=== PATIENT | male | born 1945 | race Caucasian/White ===

== ENCOUNTER 2017-07-18 04:26 | Inpatient (IN) ==
[2017-07-18] MEDS ORDERED: ONDANSETRON 4 MG/2 ML VIAL ONE (04:40)
[2017-07-18] MEDS ORDERED: TICAGRELOR 90 MG TABLET ONE (04:40)
[2017-07-18] MEDS ORDERED: MORPHINE 2 MG/1 ML SYRINGE ONE (04:40)
[2017-07-18] MEDS ORDERED: NITROGLYCERIN 2% OINT 1 INCH/GM PACK TOP ONE (04:41)
[2017-07-18] MEDS ORDERED: MIDAZOLAM 10 MG/2 ML VIAL ONE (04:48)
[2017-07-18] MEDS ORDERED: VECURONIUM 10 MG VIAL IV ONE (04:50)
[2017-07-18] MEDS ORDERED: HEPARIN/NACL 0.9% 2 UNITS/ML 0 ML IV ONE (05:16)
[2017-07-18] MEDS ORDERED: LIDOCAINE 1% 20 ML VIAL ONE (05:16)
[2017-07-18 05:17] LABS: Basophils # 0.1 10*3/uL (0.0-0.2); Basophils % 0.4 % (0.0-0.8); Eosinophils # 0.1 10*3/uL (0.0-0.87); Eosinophils % 0.4 % (0.00-10.9); Hemoglobin 10.9 GM/DL (14.0-18.0); Immature Granulocytes % 0.4 %; Immature Granulocytes Absolute 0.05 #; Lymphocytes # 1.6 10*3/uL (1.4-4.0); Lymphocytes % 13.2 % (21.2-54.2); Mean Corpuscular HGB Conc 34.1 GM/DL (32-36); Mean Corpuscular Hemoglobin 31 PG (27-34); Mean Platelet Volume 9.9 FL (9.6-12.0); Monocytes # 1.2 10*3/uL (0.11-0.8); Monocytes % 9.7 % (1.7-12.7); Neutrophils # 9.1 10*3/uL (1.4-7.4); Neutrophils % 75.9 % (38.7-73.9); Platelet Count 229 T/CUMM (130-400); Red Blood Count 3.48 MC/CUMM (3.8-5.5); Red Cell Distribution Width 15.4 % (9.3-17.3)
[2017-07-18 05:20] LABS: INR 1.1; PT Patient Result 11.3 SECS; Partial Thromboplastin Time 38.4 SECS (0-40)
[2017-07-18] MEDS ORDERED: HEPARIN 5,000 UNIT/1 ML VIAL ONE (05:23)
[2017-07-18 05:29] LABS: Albumin 2.8 G/DL (3.4-5.0); Bilirubin,Total 1.5 MG/DL (0.2-1.0); Calcium 8.3 MG/DL (8.5-10.1); Total Protein 6.4 G/DL (6.4-8.3)
[2017-07-18] MEDS ORDERED: DOPamine 800 MG/250 ML PREMIX IV ONE (05:33)
[2017-07-18] MEDS ORDERED: TIROFIBAN 5,000 MCG/100 ML PREMIX IV ONE (05:33)
[2017-07-18] MEDS ORDERED: ONDANSETRON 4 MG/2 ML VIAL IV PRN (06:23)
[2017-07-18] MEDS ORDERED: ZALEPLON 5 MG CAPSULE PO PRN (06:23)
[2017-07-18] MEDS ORDERED: SODIUM CHLORIDE 0.45% 1,000 ML IV SCH (06:30)
[2017-07-18] MEDS: SODIUM CHLORIDE 0.9% 1,000 ML IV SCH ×3 (06:55→20:25)
[2017-07-18] MEDS ORDERED: ATORVASTATIN 40 MG TABLET PO STA (06:56)
[2017-07-18 07:56] LABS: CKMB % 3.5 %
[2017-07-18 07:57] LABS: Troponin I Only 3.67 NG/ML (0.00-0.045)
[2017-07-18 08:11] LABS: Apearance,Urine CLOUDY (Clear); Bilirubin,Urine Negative (Negative); Blood, Urine Negative (Negative); Glucose,Urine (UA) 50 mg/dL (Negative); Ketones,Urine Negative (Negative); Mucus,Urine Occasional /LPF (Occasional); Nitrite,Urine Negative (Negative); Protein,Urine >=500 MG/DL; RBC,Urine 26 /HPF (0-4); Sperm,Urine Occasional /HPF (Negative); Squamous Epithelial Cell,Urine Occasional /HPF (0-10); Urine Specific Gravity 1.045 (1.001-1.035); WBC,Urine 5 /HPF (0-6)
[2017-07-18 08:12] LABS: Urine Color Dark yellow (Yellow)
[2017-07-18 08:54] LABS: ABG Base Excess -5.4 MMOL/L (-2.5-2.5); ABG Oxygen Saturation 98.8 % (95-100); ABG PCO2 64.8 MM HG (35-48); ABG TCO2 22.5 MMOL/L (23-27); Allen Test Positive; Pt O2 Delivery Device Ventilator
[2017-07-18 10:44] LABS: CKMB % 7.3 %
[2017-07-18 10:47] LABS: Troponin I Only 10.3 NG/ML (0.00-0.045)
[2017-07-18] MEDS ORDERED: MIDAZOLAM 100 MG in SODIUM CHLORIDE 0.9% 80 ML IV PRN (10:55)
[2017-07-18] MEDS ORDERED: PROPOFOL 1,000 MG/100 ML BOTTLE IV ONE (10:58)
[2017-07-18] MEDS: ATORVASTATIN 80 MG TABLET PO SCH (11:49)
[2017-07-18] MEDS: METOPROLOL TARTRATE 25 MG TABLET PO SCH ×2 (11:50→22:21)
[2017-07-18] MEDS: SERTRALINE 50 MG TABLET PO SCH (11:50)
[2017-07-18] MEDS: PANTOPRAZOLE 40 MG TABLET PO SCH (11:50)
[2017-07-18] MEDS: traZODone 50 MG TABLET PO SCH ×3 (11:50→22:08)
[2017-07-18] MEDS: ASPIRIN EC 81 MG TABLET PO SCH (11:50)
[2017-07-18] MEDS: TICAGRELOR 90 MG TABLET PO SCH ×2 (11:50→22:07)
[2017-07-18] MEDS: methylPREDNISolone SOD SUC 40 MG/1 ML VIAL IV SCH ×2 (11:51→17:47)
[2017-07-18] MEDS: PROPOFOL 1,000 MG/100 ML BOTTLE IV SCH (12:20)
[2017-07-18 13:54] LABS: CKMB % 8.1 %
[2017-07-18 14:13] LABS: Troponin I Only 11.9 NG/ML (0.00-0.045)
[2017-07-18] MEDS: ALBUTEROL/IPRATROPIUM 3 ML NEB RESP TX SCH ×2 (15:37→17:57)
[2017-07-18] MEDS: HYDROmorphone 2 MG/1 ML VIAL IV PRN ×2 (16:45→20:25)
[2017-07-18] MEDS ORDERED: TICAGRELOR 90 MG TABLET PO ONE ×2 (20:56→21:00)
[2017-07-18] MEDS ORDERED: HALOPERIDOL 5 MG/ML AMP IV PRN (21:28)
[2017-07-18] MEDS ORDERED: SODIUM CHLORIDE 0.9% 500 ML IV ONE (21:30)
[2017-07-18] MEDS ORDERED: diphenhydrAMINE 50 MG/1 ML VIAL IV ONE (21:30)
[2017-07-19] MEDS: SODIUM CHLORIDE 0.9% 1,000 ML IV SCH ×6 (00:45→23:30)
[2017-07-19] MEDS: ALBUTEROL/IPRATROPIUM 3 ML NEB RESP TX SCH ×4 (01:50→19:49)
[2017-07-19] MEDS: methylPREDNISolone SOD SUC 40 MG/1 ML VIAL IV SCH ×3 (03:17→17:12)
[2017-07-19 03:36] LABS: Allen Test Positive; Pt O2 Delivery Device Ventilator
[2017-07-19 03:37] LABS: ABG Base Excess -4.5 MMOL/L (-2.5-2.5); ABG HCO3 20.3 MMOL/L (20-26); ABG Oxygen Saturation 98.7 % (95-100); ABG PCO2 36.5 MM HG (35-48); ABG PH 7.364 (7.35-7.45); ABG PO2 155.7 MM HG (80-95); ABG TCO2 21.5 MMOL/L (23-27)
[2017-07-19 04:36] LABS: Basophils % 0.1 % (0.0-0.8); Hematocrit 32.8 VOL% (42.0-52.0); Hemoglobin 10.3 GM/DL (14.0-18.0); Immature Granulocytes % 0.4 %; Immature Granulocytes Absolute 0.04 #; Lymphocytes # 0.8 10*3/uL (1.4-4.0); Lymphocytes % 8.3 % (21.2-54.2); Mean Corpuscular HGB Conc 31.4 GM/DL (32-36); Mean Corpuscular Hemoglobin 30 PG (27-34); Mean Corpuscular Volume 96.5 FL (87-102); Mean Platelet Volume 10.1 FL (9.6-12.0); Monocytes # 0.6 10*3/uL (0.11-0.8); Monocytes % 6.1 % (1.7-12.7); Neutrophils # 8.5 10*3/uL (1.4-7.4); Neutrophils % 85.1 % (38.7-73.9); Platelet Count 208 T/CUMM (130-400); Red Cell Distribution Width 15.9 % (9.3-17.3)
[2017-07-19] MEDS: HYDROmorphone 2 MG/1 ML VIAL IV PRN (05:10)
[2017-07-19 06:26] LABS: Band Neutrophils 2 % (0-10); Burr Cells Slight; Giant Platelets Few; Hypochromasia 1+; Lymphocytes 5 % (20-55); Ovalocytes Slight; Platelet Estimate Adequate; Segmented Neutrophils 91 % (50-85); Total Cells Counted 100
[2017-07-19] MEDS: PROPOFOL 1,000 MG/100 ML BOTTLE IV SCH ×3 (08:51→18:11)
[2017-07-19] MEDS: ATORVASTATIN 80 MG TABLET PO SCH (10:37)
[2017-07-19] MEDS: CLINDAMYCIN INJ 600 MG in PREMIX 1 EACH IV SCH ×2 (10:37→17:12)
[2017-07-19] MEDS: PANTOPRAZOLE 40 MG TABLET PO SCH (10:37)
[2017-07-19] MEDS: TICAGRELOR 90 MG TABLET PO SCH ×2 (10:37→20:34)
[2017-07-19] MEDS: ASPIRIN EC 81 MG TABLET PO SCH (10:37)
[2017-07-19] MEDS: traZODone 50 MG TABLET PO SCH ×3 (10:37→20:34)
[2017-07-19] MEDS: SERTRALINE 50 MG TABLET PO SCH (10:38)
[2017-07-19] MEDS: METOPROLOL TARTRATE 25 MG TABLET PO SCH ×2 (10:38→20:34)
[2017-07-19] MEDS ORDERED: ENOXAPARIN 40 MG/0.4 ML SYRINGE SUBCUT SCH (21:00)
[2017-07-20] MEDS: CLINDAMYCIN INJ 600 MG in PREMIX 1 EACH IV SCH ×3 (00:18→15:36)
[2017-07-20] MEDS: HYDROmorphone 2 MG/1 ML VIAL IV PRN (00:18)
[2017-07-20] MEDS: ALBUTEROL/IPRATROPIUM 3 ML NEB RESP TX SCH ×4 (00:35→19:30)
[2017-07-20 03:08] LABS: ABG Base Excess -3.3 MMOL/L (-2.5-2.5); ABG HCO3 21.4 MMOL/L (20-26); ABG Oxygen Saturation 97.4 % (95-100); ABG PCO2 36.8 MM HG (35-48); ABG PH 7.382 (7.35-7.45); ABG PO2 101.6 MM HG (80-95); ABG TCO2 22.5 MMOL/L (23-27); Allen Test Positive; Pt O2 Delivery Device Ventilator
[2017-07-20] MEDS: methylPREDNISolone SOD SUC 40 MG/1 ML VIAL IV SCH ×3 (03:43→16:57)
[2017-07-20 05:02] LABS: Basophils % 0.1 % (0.0-0.8); Hematocrit 26.6 VOL% (42.0-52.0); Immature Granulocytes % 0.6 %; Immature Granulocytes Absolute 0.05 #; Lymphocytes # 0.4 10*3/uL (1.4-4.0); Lymphocytes % 5.1 % (21.2-54.2); Mean Corpuscular HGB Conc 33.8 GM/DL (32-36); Mean Corpuscular Hemoglobin 31 PG (27-34); Mean Platelet Volume 9.9 FL (9.6-12.0); Monocytes # 0.5 10*3/uL (0.11-0.8); Neutrophils # 6.9 10*3/uL (1.4-7.4); Neutrophils % 88.2 % (38.7-73.9); Platelet Count 202 T/CUMM (130-400); Red Blood Count 2.89 MC/CUMM (3.8-5.5); Red Cell Distribution Width 15.9 % (9.3-17.3); White Blood Count 7.9 T/CUMM (4-12)
[2017-07-20 05:27] LABS: Band Neutrophils 5 % (0-10); Hypochromasia 1+; Lymphocytes 4 % (20-55); Segmented Neutrophils 89 % (50-85); Total Cells Counted 100
[2017-07-20 05:28] LABS: Microcytosis Slight; Ovalocytes Slight; Platelet Estimate Normal
[2017-07-20 05:38] LABS: Albumin 2.3 G/DL (3.4-5.0); Bilirubin,Total 1.3 MG/DL (0.2-1.0); Calcium 7.8 MG/DL (8.5-10.1); Osmolality,Calculated 287.3 MOS/KG (273-304); Potassium 4.3 MMOL/L (3.5-5.1); Total Protein 5.3 G/DL (6.4-8.3)
[2017-07-20] MEDS: PROPOFOL 1,000 MG/100 ML BOTTLE IV SCH ×2 (05:52→15:35)
[2017-07-20] MEDS: SODIUM CHLORIDE 0.9% 1,000 ML IV SCH ×2 (06:41→15:38)
[2017-07-20] MEDS: NICOTINE 21 MG/24 HR PATCH TRANSDERM SCH (09:26)
[2017-07-20] MEDS: TICAGRELOR 90 MG TABLET PO SCH ×2 (09:27→21:20)
[2017-07-20] MEDS: ASPIRIN EC 81 MG TABLET PO SCH (09:27)
[2017-07-20] MEDS: PANTOPRAZOLE 40 MG TABLET PO SCH (09:27)
[2017-07-20] MEDS: traZODone 50 MG TABLET PO SCH ×3 (09:27→21:20)
[2017-07-20] MEDS: ATORVASTATIN 80 MG TABLET PO SCH (09:27)
[2017-07-20] MEDS: METOPROLOL TARTRATE 25 MG TABLET PO SCH ×2 (09:28→21:20)
[2017-07-20] MEDS: SERTRALINE 50 MG TABLET PO SCH (09:28)
[2017-07-21] MEDS: PROPOFOL 1,000 MG/100 ML BOTTLE IV SCH ×3 (00:20→19:02)
[2017-07-21] MEDS: ALBUTEROL/IPRATROPIUM 3 ML NEB RESP TX SCH ×4 (00:40→19:59)
[2017-07-21] MEDS: CLINDAMYCIN INJ 600 MG in PREMIX 1 EACH IV SCH ×3 (01:07→16:03)
[2017-07-21] MEDS: methylPREDNISolone SOD SUC 40 MG/1 ML VIAL IV SCH ×3 (02:37→16:38)
[2017-07-21 03:51] LABS: ABG Base Excess -2.7 MMOL/L (-2.5-2.5); ABG HCO3 22.1 MMOL/L (20-26); ABG Oxygen Saturation 93.7 % (95-100); ABG PCO2 34.2 MM HG (35-48); ABG PH 7.405 (7.35-7.45); ABG PO2 72.6 MM HG (80-95); ABG TCO2 19.6 MMOL/L (23-27); Allen Test Positive; Pt O2 Delivery Device Ventilator
[2017-07-21 04:17] LABS: Basophils % 0.1 % (0.0-0.8); Hematocrit 29.9 VOL% (42.0-52.0); Hemoglobin 10.2 GM/DL (14.0-18.0); Immature Granulocytes % 0.6 %; Immature Granulocytes Absolute 0.05 #; Lymphocytes # 0.4 10*3/uL (1.4-4.0); Lymphocytes % 4.7 % (21.2-54.2); Mean Corpuscular HGB Conc 34.1 GM/DL (32-36); Mean Corpuscular Hemoglobin 31 PG (27-34); Mean Corpuscular Volume 91.2 FL (87-102); Mean Platelet Volume 10.1 FL (9.6-12.0); Monocytes # 0.5 10*3/uL (0.11-0.8); Neutrophils # 7.7 10*3/uL (1.4-7.4); Neutrophils % 88.6 % (38.7-73.9); Platelet Count 225 T/CUMM (130-400); Red Blood Count 3.28 MC/CUMM (3.8-5.5); Red Cell Distribution Width 15.9 % (9.3-17.3); White Blood Count 8.7 T/CUMM (4-12)
[2017-07-21 04:58] LABS: Albumin 2.2 G/DL (3.4-5.0); Bilirubin,Direct 0.4 MG/DL (0.0-0.20); Bilirubin,Indirect 1.6 MG/DL (0.0-1.0); Calcium 7.6 MG/DL (8.5-10.1); Magnesium 2.4 MG/DL (1.8-2.4); Osmolality,Calculated 289.8 MOS/KG (273-304); Potassium 4.1 MMOL/L (3.5-5.1); Risk Ratio 3.62; Total Protein 5.3 G/DL (6.4-8.3); VLDL CHOLESTEROL 34.2 MG/DL
[2017-07-21] MEDS: SODIUM CHLORIDE 0.9% 1,000 ML IV SCH (06:13)
[2017-07-21] MEDS ORDERED: FUROSEMIDE 40 MG/4 ML VIAL IV ONE (09:08)
[2017-07-21] MEDS: NICOTINE 21 MG/24 HR PATCH TRANSDERM SCH (09:15)
[2017-07-21] MEDS: traZODone 50 MG TABLET PO SCH ×3 (09:15→21:42)
[2017-07-21] MEDS: METOPROLOL TARTRATE 25 MG TABLET PO SCH ×2 (09:15→21:43)
[2017-07-21] MEDS: ASPIRIN EC 81 MG TABLET PO SCH (09:15)
[2017-07-21] MEDS: TICAGRELOR 90 MG TABLET PO SCH ×2 (09:16→21:42)
[2017-07-21] MEDS: ATORVASTATIN 80 MG TABLET PO SCH (09:16)
[2017-07-21] MEDS: PANTOPRAZOLE 40 MG TABLET PO SCH (09:16)
[2017-07-21] MEDS: SERTRALINE 50 MG TABLET PO SCH (09:16)
[2017-07-22] MEDS: CLINDAMYCIN INJ 600 MG in PREMIX 1 EACH IV SCH ×3 (00:39→15:59)
[2017-07-22] MEDS: methylPREDNISolone SOD SUC 40 MG/1 ML VIAL IV SCH ×3 (00:39→18:44)
[2017-07-22] MEDS: ALBUTEROL/IPRATROPIUM 3 ML NEB RESP TX SCH ×5 (00:40→20:20)
[2017-07-22] MEDS: PROPOFOL 1,000 MG/100 ML BOTTLE IV SCH ×2 (02:40→22:05)
[2017-07-22 04:13] LABS: ABG Base Excess 1.5 MMOL/L (-2.5-2.5); ABG HCO3 25.1 MMOL/L (20-26); ABG Oxygen Saturation 96.2 % (95-100); ABG PCO2 35.9 MM HG (35-48); ABG PH 7.463 (7.35-7.45); ABG PO2 83.4 MM HG (80-95); ABG TCO2 26.2 MMOL/L (23-27); Allen Test Positive; Pt O2 Delivery Device Ventilator
[2017-07-22 05:39] LABS: Basophils % 0.2 % (0.0-0.8); Hematocrit 31.2 VOL% (42.0-52.0); Hemoglobin 10.6 GM/DL (14.0-18.0); Immature Granulocytes % 0.4 %; Immature Granulocytes Absolute 0.05 #; Lymphocytes # 0.5 10*3/uL (1.4-4.0); Mean Corpuscular Hemoglobin 31 PG (27-34); Mean Platelet Volume 10.1 FL (9.6-12.0); Monocytes # 0.9 10*3/uL (0.11-0.8); Monocytes % 7.5 % (1.7-12.7); Neutrophils # 10.8 10*3/uL (1.4-7.4); Neutrophils % 87.9 % (38.7-73.9); Platelet Count 256 T/CUMM (130-400); Red Blood Count 3.43 MC/CUMM (3.8-5.5); Red Cell Distribution Width 15.8 % (9.3-17.3); White Blood Count 12.3 T/CUMM (4-12)
[2017-07-22 06:02] LABS: Calcium 7.5 MG/DL (8.5-10.1); Magnesium 2.2 MG/DL (1.8-2.4); Osmolality,Calculated 288.8 MOS/KG (273-304); Potassium 3.8 MMOL/L (3.5-5.1)
[2017-07-22 06:12] LABS: Calcium 7.5 MG/DL (8.5-10.1); Osmolality,Calculated 287.8 MOS/KG (273-304); Potassium 3.8 MMOL/L (3.5-5.1)
[2017-07-22 06:47] LABS: Band Neutrophils 2 % (0-10); Hypochromasia 1+; Lymphocytes 2 % (20-55); Platelet Estimate Adequate; Segmented Neutrophils 93 % (50-85); Total Cells Counted 100
[2017-07-22] MEDS: TICAGRELOR 90 MG TABLET PO SCH ×2 (09:31→22:05)
[2017-07-22] MEDS: ATORVASTATIN 80 MG TABLET PO SCH (09:32)
[2017-07-22] MEDS: PANTOPRAZOLE 40 MG TABLET PO SCH (09:32)
[2017-07-22] MEDS: METOPROLOL TARTRATE 25 MG TABLET PO SCH ×2 (09:32→22:05)
[2017-07-22] MEDS: SERTRALINE 50 MG TABLET PO SCH (09:33)
[2017-07-22] MEDS: NICOTINE 21 MG/24 HR PATCH TRANSDERM SCH (09:33)
[2017-07-22] MEDS: traZODone 50 MG TABLET PO SCH ×3 (09:33→22:05)
[2017-07-22] MEDS: ASPIRIN EC 81 MG TABLET PO SCH (11:48)
[2017-07-22 12:12] LABS: ABG Base Excess 2.8 MMOL/L (-2.5-2.5); ABG HCO3 25.3 MMOL/L (20-26); ABG Oxygen Saturation 91.4 % (95-100); ABG PCO2 31.8 MM HG (35-48); ABG PH 7.519 (7.35-7.45); ABG PO2 56.2 MM HG (80-95); ABG TCO2 26.3 MMOL/L (23-27); Allen Test Positive; Pt O2 Delivery Device Ventilator
[2017-07-22] MEDS: HYDROmorphone 2 MG/1 ML VIAL IV PRN ×2 (14:05→18:38)
[2017-07-22] MEDS: SODIUM CHLORIDE 0.9% 1,000 ML IV SCH (18:36)
[2017-07-22] MEDS ORDERED: DILTIAZEM 50 MG/10 ML VIAL IV ONE (19:22)
[2017-07-22] MEDS ORDERED: DIGOXIN 0.5 MG/2 ML AMP IV ONE (19:23)
[2017-07-22] MEDS: DILTIAZEM INJ 100 MG in SODIUM CHLORIDE 0.9% 100 ML IV SCH (19:47)
[2017-07-22] MEDS ORDERED: ACETAMINOPHEN 650 MG SUPP RECTAL PRN (20:35)
[2017-07-23] MEDS: ALBUTEROL/IPRATROPIUM 3 ML NEB RESP TX SCH ×7 (00:22→23:26)
[2017-07-23] MEDS: methylPREDNISolone SOD SUC 40 MG/1 ML VIAL IV SCH ×3 (01:08→18:17)
[2017-07-23] MEDS: CLINDAMYCIN INJ 600 MG in PREMIX 1 EACH IV SCH ×3 (01:08→16:00)
[2017-07-23 02:45] LABS: ABG Base Excess 2.3 MMOL/L (-2.5-2.5); ABG HCO3 25.6 MMOL/L (20-26); ABG Oxygen Saturation 91.1 % (95-100); ABG PCO2 34.7 MM HG (35-48); ABG PH 7.485 (7.35-7.45); ABG TCO2 26.6 MMOL/L (23-27)
[2017-07-23 02:46] LABS: Allen Test Positive; Pt O2 Delivery Device Ventilator
[2017-07-23 06:26] LABS: Basophils % 0.1 % (0.0-0.8); Hematocrit 31.8 VOL% (42.0-52.0); Hemoglobin 10.7 GM/DL (14.0-18.0); Immature Granulocytes % 0.7 %; Immature Granulocytes Absolute 0.09 #; Lymphocytes # 0.6 10*3/uL (1.4-4.0); Mean Corpuscular HGB Conc 33.6 GM/DL (32-36); Mean Corpuscular Hemoglobin 30 PG (27-34); Mean Corpuscular Volume 89.8 FL (87-102); Mean Platelet Volume 10.1 FL (9.6-12.0); Monocytes # 0.8 10*3/uL (0.11-0.8); Monocytes % 5.8 % (1.7-12.7); Neutrophils # 12.2 10*3/uL (1.4-7.4); Neutrophils % 89.4 % (38.7-73.9); Platelet Count 262 T/CUMM (130-400); Red Blood Count 3.54 MC/CUMM (3.8-5.5); Red Cell Distribution Width 15.7 % (9.3-17.3); White Blood Count 13.7 T/CUMM (4-12)
[2017-07-23 07:00] LABS: Calcium 7.8 MG/DL (8.5-10.1); Magnesium 2.4 MG/DL (1.8-2.4); Osmolality,Calculated 289.8 MOS/KG (273-304); Potassium 3.9 MMOL/L (3.5-5.1)
[2017-07-23 07:05] LABS: Band Neutrophils 1 % (0-10); Lymphocytes 5 % (20-55); Platelet Estimate Normal; Segmented Neutrophils 90 % (50-85); Total Cells Counted 100
[2017-07-23 07:06] LABS: Anisocytosis 1+; Microcytosis 1+
[2017-07-23] MEDS ORDERED: FUROSEMIDE 40 MG/4 ML VIAL IV ONE (07:44)
[2017-07-23] MEDS: ASPIRIN EC 81 MG TABLET PO SCH (08:49)
[2017-07-23] MEDS: SERTRALINE 50 MG TABLET PO SCH (08:50)
[2017-07-23] MEDS: PANTOPRAZOLE 40 MG TABLET PO SCH (08:50)
[2017-07-23] MEDS: ATORVASTATIN 80 MG TABLET PO SCH (08:51)
[2017-07-23] MEDS: METOPROLOL TARTRATE 25 MG TABLET PO SCH ×2 (08:51→21:56)
[2017-07-23] MEDS: traZODone 50 MG TABLET PO SCH ×3 (08:51→21:56)
[2017-07-23] MEDS: TICAGRELOR 90 MG TABLET PO SCH ×2 (08:52→21:56)
[2017-07-23] MEDS: NICOTINE 21 MG/24 HR PATCH TRANSDERM SCH (08:57)
[2017-07-23] MEDS: HYDROmorphone 2 MG/1 ML VIAL IV PRN ×2 (10:07→12:39)
[2017-07-23 11:59] LABS: Free T4 (Free Thyroxine) 1.09 NG/DL (0.76-1.46); Thyroid Stimulating Hormone 0.141 uIU/ml (0.358-3.74)
[2017-07-23] MEDS: PROPOFOL 1,000 MG/100 ML BOTTLE IV SCH (12:07)
[2017-07-23] MEDS ORDERED: ACETAMINOPHEN 325 MG TABLET PO PRN (12:26)
[2017-07-24] MEDS: DILTIAZEM INJ 100 MG in SODIUM CHLORIDE 0.9% 100 ML IV SCH (00:46)
[2017-07-24] MEDS: CLINDAMYCIN INJ 600 MG in PREMIX 1 EACH IV SCH ×3 (01:54→16:12)
[2017-07-24] MEDS: methylPREDNISolone SOD SUC 40 MG/1 ML VIAL IV SCH ×3 (01:55→18:19)
[2017-07-24] MEDS: ALBUTEROL/IPRATROPIUM 3 ML NEB RESP TX SCH ×6 (02:33→22:57)
[2017-07-24] MEDS: NITROGLYCERIN SL 0.4 MG TABLET SL PRN ×2 (04:07→04:12)
[2017-07-24 04:42] LABS: ABG Base Excess 6.4 MMOL/L (-2.5-2.5); ABG Oxygen Saturation 86.6 % (95-100); ABG PCO2 33.8 MM HG (35-48); ABG PH 7.541 (7.35-7.45); ABG PO2 51.2 MM HG (80-95); ABG TCO2 26.1 MMOL/L (23-27)
[2017-07-24 04:59] LABS: Basophils % 0.1 % (0.0-0.8); Hematocrit 30.1 VOL% (42.0-52.0); Hemoglobin 10.3 GM/DL (14.0-18.0); Immature Granulocytes % 0.6 %; Immature Granulocytes Absolute 0.08 #; Lymphocytes # 0.4 10*3/uL (1.4-4.0); Lymphocytes % 2.7 % (21.2-54.2); Mean Corpuscular HGB Conc 34.2 GM/DL (32-36); Mean Corpuscular Hemoglobin 30 PG (27-34); Mean Corpuscular Volume 88.5 FL (87-102); Mean Platelet Volume 10.4 FL (9.6-12.0); Monocytes # 0.4 10*3/uL (0.11-0.8); Neutrophils # 12.1 10*3/uL (1.4-7.4); Neutrophils % 93.6 % (38.7-73.9); Platelet Count 286 T/CUMM (130-400); Red Cell Distribution Width 15.4 % (9.3-17.3); White Blood Count 12.9 T/CUMM (4-12)
[2017-07-24 05:20] LABS: Lymphocytes 7 % (20-55); Segmented Neutrophils 93 % (50-85); Total Cells Counted 100
[2017-07-24 05:21] LABS: Giant Platelets Few; Hypochromasia 1+; Microcytosis 1+; Ovalocytes Slight; Platelet Estimate Adequate
[2017-07-24 05:34] LABS: Calcium 7.9 MG/DL (8.5-10.1); Magnesium 2.2 MG/DL (1.8-2.4); Osmolality,Calculated 288.1 MOS/KG (273-304); Potassium 3.6 MMOL/L (3.5-5.1)
[2017-07-24 05:40] LABS: Albumin 2.1 G/DL (3.4-5.0); Bilirubin,Direct 0.46 MG/DL (0.0-0.20); Bilirubin,Total 1.5 MG/DL (0.2-1.0); Total Protein 5.6 G/DL (6.4-8.3)
[2017-07-24] MEDS ORDERED: FUROSEMIDE 40 MG/4 ML VIAL IV ONE (07:34)
[2017-07-24] MEDS: ATORVASTATIN 80 MG TABLET PO SCH (08:54)
[2017-07-24] MEDS: NICOTINE 21 MG/24 HR PATCH TRANSDERM SCH (08:54)
[2017-07-24] MEDS: traZODone 50 MG TABLET PO SCH ×3 (08:55→21:26)
[2017-07-24] MEDS: TICAGRELOR 90 MG TABLET PO SCH ×2 (08:55→21:25)
[2017-07-24] MEDS: SERTRALINE 50 MG TABLET PO SCH (08:55)
[2017-07-24] MEDS: METOPROLOL TARTRATE 25 MG TABLET PO SCH (08:55)
[2017-07-24] MEDS: PANTOPRAZOLE 40 MG TABLET PO SCH (08:55)
[2017-07-24] MEDS: ASPIRIN EC 81 MG TABLET PO SCH (08:55)
[2017-07-24] MEDS: LEVOFLOXACIN INJ 500 MG in PREMIX 1 EACH IV SCH (08:59)
[2017-07-24 11:02] LABS: Troponin I Only 0.607 NG/ML (0.00-0.045)
[2017-07-24] MEDS ORDERED: BISACODYL 5 MG TABLET PO ONE (11:07)
[2017-07-24] MEDS ORDERED: DILTIAZEM 30 MG TABLET PO SCH (21:00)
[2017-07-24] MEDS: METOPROLOL TARTRATE 50 MG TABLET PO SCH (21:25)
[2017-07-24] MEDS: ATORVASTATIN 20 MG TABLET PO SCH (21:26)
[2017-07-25] MEDS: methylPREDNISolone SOD SUC 40 MG/1 ML VIAL IV SCH ×3 (00:47→16:48)
[2017-07-25] MEDS: CLINDAMYCIN INJ 600 MG in PREMIX 1 EACH IV SCH ×3 (00:47→16:38)
[2017-07-25] MEDS: ALBUTEROL/IPRATROPIUM 3 ML NEB RESP TX SCH ×6 (02:50→23:02)
[2017-07-25 05:18] LABS: Basophils % 0.1 % (0.0-0.8); Hematocrit 28.1 VOL% (42.0-52.0); Hemoglobin 9.6 GM/DL (14.0-18.0); Immature Granulocytes % 0.7 %; Lymphocytes # 0.3 10*3/uL (1.4-4.0); Lymphocytes % 2.3 % (21.2-54.2); Mean Corpuscular HGB Conc 34.2 GM/DL (32-36); Mean Corpuscular Hemoglobin 30 PG (27-34); Mean Corpuscular Volume 88.6 FL (87-102); Mean Platelet Volume 10.4 FL (9.6-12.0); Monocytes # 0.5 10*3/uL (0.11-0.8); Monocytes % 3.4 % (1.7-12.7); Neutrophils # 12.8 10*3/uL (1.4-7.4); Neutrophils % 93.5 % (38.7-73.9); Platelet Count 289 T/CUMM (130-400); Red Blood Count 3.17 MC/CUMM (3.8-5.5); Red Cell Distribution Width 14.9 % (9.3-17.3); White Blood Count 13.7 T/CUMM (4-12)
[2017-07-25 05:50] LABS: Calcium 7.7 MG/DL (8.5-10.1); Osmolality,Calculated 285.4 MOS/KG (273-304)
[2017-07-25 06:22] LABS: Band Neutrophils 1 % (0-10); Lymphocytes 5 % (20-55); Platelet Estimate Normal; Segmented Neutrophils 92 % (50-85); Total Cells Counted 100
[2017-07-25] MEDS: LEVOFLOXACIN INJ 500 MG in PREMIX 1 EACH IV SCH (07:28)
[2017-07-25] MEDS: NICOTINE 21 MG/24 HR PATCH TRANSDERM SCH (08:54)
[2017-07-25] MEDS: traZODone 50 MG TABLET PO SCH ×3 (08:55→20:53)
[2017-07-25] MEDS: DILTIAZEM CD 120 MG CAPSULE PO SCH ×2 (08:55→20:52)
[2017-07-25] MEDS: TICAGRELOR 90 MG TABLET PO SCH ×2 (08:55→20:53)
[2017-07-25] MEDS: ASPIRIN EC 81 MG TABLET PO SCH (08:55)
[2017-07-25] MEDS: PANTOPRAZOLE 40 MG TABLET PO SCH ×2 (08:55→20:53)
[2017-07-25] MEDS: METOPROLOL TARTRATE 50 MG TABLET PO SCH ×2 (08:56→20:53)
[2017-07-25] MEDS: SERTRALINE 50 MG TABLET PO SCH (08:56)
[2017-07-25] MEDS: ATORVASTATIN 20 MG TABLET PO SCH (20:53)
[2017-07-26] MEDS: methylPREDNISolone SOD SUC 40 MG/1 ML VIAL IV SCH ×3 (01:24→16:42)
[2017-07-26] MEDS: CLINDAMYCIN INJ 600 MG in PREMIX 1 EACH IV SCH ×3 (01:25→16:40)
[2017-07-26] MEDS: ALBUTEROL/IPRATROPIUM 3 ML NEB RESP TX SCH ×6 (04:10→22:55)
[2017-07-26 05:58] LABS: Basophils % 0.1 % (0.0-0.8); Hematocrit 30.3 VOL% (42.0-52.0); Hemoglobin 10.5 GM/DL (14.0-18.0); Immature Granulocytes % 0.5 %; Immature Granulocytes Absolute 0.09 #; Lymphocytes # 0.3 10*3/uL (1.4-4.0); Lymphocytes % 1.7 % (21.2-54.2); Mean Corpuscular HGB Conc 34.7 GM/DL (32-36); Mean Corpuscular Hemoglobin 31 PG (27-34); Mean Corpuscular Volume 88.3 FL (87-102); Mean Platelet Volume 10.2 FL (9.6-12.0); Monocytes # 0.4 10*3/uL (0.11-0.8); Monocytes % 2.3 % (1.7-12.7); Neutrophils # 15.8 10*3/uL (1.4-7.4); Neutrophils % 95.4 % (38.7-73.9); Platelet Count 334 T/CUMM (130-400); Red Blood Count 3.43 MC/CUMM (3.8-5.5); Red Cell Distribution Width 14.8 % (9.3-17.3); White Blood Count 16.6 T/CUMM (4-12)
[2017-07-26 06:21] LABS: Calcium 8.2 MG/DL (8.5-10.1); Magnesium 1.9 MG/DL (1.8-2.4); Osmolality,Calculated 281.5 MOS/KG (273-304); Potassium 4.2 MMOL/L (3.5-5.1)
[2017-07-26 07:41] LABS: Hypochromasia 1+; Lymphocytes 2 % (20-55); Macrocytosis 2+; Platelet Estimate Adequate; Segmented Neutrophils 98 % (50-85); Total Cells Counted 100
[2017-07-26] MEDS: LEVOFLOXACIN INJ 500 MG in PREMIX 1 EACH IV SCH (09:40)
[2017-07-26] MEDS: METOPROLOL TARTRATE 50 MG TABLET PO SCH ×2 (09:51→21:11)
[2017-07-26] MEDS: DILTIAZEM CD 120 MG CAPSULE PO SCH ×2 (09:52→21:11)
[2017-07-26] MEDS: TICAGRELOR 90 MG TABLET PO SCH ×2 (09:53→21:11)
[2017-07-26] MEDS: traZODone 50 MG TABLET PO SCH ×3 (09:54→21:11)
[2017-07-26] MEDS: ASPIRIN EC 81 MG TABLET PO SCH (09:54)
[2017-07-26] MEDS: NICOTINE 21 MG/24 HR PATCH TRANSDERM SCH (09:54)
[2017-07-26] MEDS: SERTRALINE 50 MG TABLET PO SCH (09:54)
[2017-07-26] MEDS: PANTOPRAZOLE 40 MG TABLET PO SCH ×2 (09:55→21:11)
[2017-07-26] MEDS: ATORVASTATIN 20 MG TABLET PO SCH (21:11)
[2017-07-27] MEDS: CLINDAMYCIN INJ 600 MG in PREMIX 1 EACH IV SCH ×3 (01:18→17:56)
[2017-07-27] MEDS: methylPREDNISolone SOD SUC 40 MG/1 ML VIAL IV SCH ×2 (01:18→09:33)
[2017-07-27] MEDS: ALBUTEROL/IPRATROPIUM 3 ML NEB RESP TX SCH ×5 (03:10→19:31)
[2017-07-27 05:52] LABS: Basophils % 0.1 % (0.0-0.8); Hematocrit 31.2 VOL% (42.0-52.0); Hemoglobin 10.8 GM/DL (14.0-18.0); Immature Granulocytes % 0.7 %; Immature Granulocytes Absolute 0.12 #; Lymphocytes # 0.3 10*3/uL (1.4-4.0); Lymphocytes % 1.5 % (21.2-54.2); Mean Corpuscular HGB Conc 34.6 GM/DL (32-36); Mean Corpuscular Hemoglobin 31 PG (27-34); Mean Corpuscular Volume 88.1 FL (87-102); Mean Platelet Volume 10.6 FL (9.6-12.0); Monocytes # 0.4 10*3/uL (0.11-0.8); Monocytes % 2.6 % (1.7-12.7); Neutrophils # 16.2 10*3/uL (1.4-7.4); Neutrophils % 95.1 % (38.7-73.9); Platelet Count 354 T/CUMM (130-400); Red Blood Count 3.54 MC/CUMM (3.8-5.5); Red Cell Distribution Width 14.7 % (9.3-17.3)
[2017-07-27 06:15] LABS: Osmolality,Calculated 278.8 MOS/KG (273-304); Potassium 4.5 MMOL/L (3.5-5.1)
[2017-07-27 06:28] LABS: Giant Platelets Few; Hypochromasia 1+; Lymphocytes 1 % (20-55); Ovalocytes Slight; Platelet Estimate Adequate; Segmented Neutrophils 97 % (50-85); Total Cells Counted 100
[2017-07-27 06:29] LABS: Microcytosis Slight
[2017-07-27] MEDS: NICOTINE 21 MG/24 HR PATCH TRANSDERM SCH (09:34)
[2017-07-27] MEDS: METOPROLOL TARTRATE 50 MG TABLET PO SCH ×2 (09:36→20:10)
[2017-07-27] MEDS: DILTIAZEM CD 120 MG CAPSULE PO SCH ×2 (09:36→20:10)
[2017-07-27] MEDS: ASPIRIN EC 81 MG TABLET PO SCH (09:36)
[2017-07-27] MEDS: SERTRALINE 50 MG TABLET PO SCH (09:36)
[2017-07-27] MEDS: TICAGRELOR 90 MG TABLET PO SCH ×2 (09:36→20:10)
[2017-07-27] MEDS: traZODone 50 MG TABLET PO SCH ×3 (09:36→20:10)
[2017-07-27] MEDS: PANTOPRAZOLE 40 MG TABLET PO SCH ×2 (09:36→20:10)
[2017-07-27] MEDS: LEVOFLOXACIN INJ 500 MG in PREMIX 1 EACH IV SCH (09:52)
[2017-07-27] MEDS: predniSONE 20 MG TABLET PO SCH (14:30)
[2017-07-27] MEDS: ATORVASTATIN 20 MG TABLET PO SCH (20:10)
[2017-07-28] MEDS: CLINDAMYCIN INJ 600 MG in PREMIX 1 EACH IV SCH (00:24)
[2017-07-28] MEDS: ALBUTEROL/IPRATROPIUM 3 ML NEB RESP TX SCH ×4 (03:34→11:19)
[2017-07-28] MEDS: LEVOFLOXACIN INJ 500 MG in PREMIX 1 EACH IV SCH (07:46)
[2017-07-28] MEDS ORDERED: BUDESONIDE/FORMOTEROL 160-4.5 INHALER 6 GM INH SCH (09:00)
[2017-07-28] MEDS: DILTIAZEM CD 120 MG CAPSULE PO SCH (09:25)
[2017-07-28] MEDS: ASPIRIN EC 81 MG TABLET PO SCH (09:25)
[2017-07-28] MEDS: predniSONE 20 MG TABLET PO SCH (09:26)
[2017-07-28] MEDS: NICOTINE 21 MG/24 HR PATCH TRANSDERM SCH (09:26)
[2017-07-28] MEDS: TICAGRELOR 90 MG TABLET PO SCH (09:26)
[2017-07-28] MEDS: PANTOPRAZOLE 40 MG TABLET PO SCH (09:26)
[2017-07-28] MEDS: traZODone 50 MG TABLET PO SCH (09:26)
[2017-07-28] MEDS: METOPROLOL TARTRATE 50 MG TABLET PO SCH (09:26)
[2017-07-28] MEDS: SERTRALINE 50 MG TABLET PO SCH (09:26)
[2017-07-28 12:07] VITALS: BP 123/53
[2017-07-28 15:22] LABS: Myeloperoxidase Antibody < 0.2 U
== END 2017-07-28 13:42 | DRG 246 ==
LOC: EDBD → EDUNIT# → N.ED 04:26 → N.CC 05:06 → N.EDINP 06:23 → N.CC 06:30 → N.TELEN 07-25 10:15
PROVIDERS: ADMIT Internal Medicine Cardiovascular Disease; ATTEND Internal Medicine Cardiovascular Disease
PROC: CLCCHCL (ICD-10-PCS; 2017-07-18 05:30)

== ENCOUNTER 2018-01-09 15:45 | Inpatient (IN) ==
[2018-01-09 16:46] LABS: Basophils % 0.4 % (0.0-0.8); Eosinophils # 0.2 10*3/uL (0.0-0.87); Eosinophils % 2.4 % (0.00-10.9); Hematocrit 28.1 VOL% (42.0-52.0); Hemoglobin 8.4 GM/DL (14.0-18.0); Immature Granulocytes % 0.7 %; Immature Granulocytes Absolute 0.06 #; Lymphocytes # 0.7 10*3/uL (1.4-4.0); Lymphocytes % 8.4 % (21.2-54.2); Mean Corpuscular HGB Conc 29.9 GM/DL (32-36); Mean Corpuscular Hemoglobin 23 PG (27-34); Mean Corpuscular Volume 75.7 FL (87-102); Mean Platelet Volume 9.1 FL (9.6-12.0); Monocytes # 0.6 10*3/uL (0.11-0.8); Monocytes % 6.6 % (1.7-12.7); Neutrophils # 6.9 10*3/uL (1.4-7.4); Neutrophils % 81.5 % (38.7-73.9); Platelet Count 284 T/CUMM (130-400); Red Blood Count 3.71 MC/CUMM (3.8-5.5); Red Cell Distribution Width 19.9 % (9.3-17.3); White Blood Count 8.5 T/CUMM (4-12)
[2018-01-09 16:58] LABS: Alanine Aminotransferase 21 U/L (16-61); Albumin 3.2 G/DL (3.4-5.0); Alkaline Phosphatase 116 U/L (45-117); Aspartate Amino Transferase 14 U/L (0-37); Blood Urea Nitrogen 26 MG/DL (7-18); Calcium 7.9 MG/DL (8.5-10.1); Glucose 183 MG/DL (74-106); Osmolality,Calculated 277.2 MOS/KG (273-304); Potassium 4.5 MMOL/L (3.5-5.1); Sodium 134 MMOL/L (136-145); Total Protein 6.6 G/DL (6.4-8.3); Troponin I Only < 0.015 NG/ML (0.00-0.045)
[2018-01-09 17:09] LABS: ABG Base Excess -2.7 MMOL/L (-2.5-2.5); ABG HCO3 21.2 MMOL/L (20-26); ABG Oxygen Saturation 96.6 % (95-100); ABG PCO2 33.2 MM HG (35-48); ABG PH 7.423 (7.35-7.45); ABG PO2 94.4 MM HG (80-95); ABG TCO2 22.2 MMOL/L (23-27); Allen Test Positive
[2018-01-09 17:18] LABS: Ammonia < 10 UMOL/L (11-32)
[2018-01-09] MEDS ORDERED: ONDANSETRON 4 MG/2 ML VIAL IV PRN (21:18)
[2018-01-09] MEDS ORDERED: ONDANSETRON 4 MG TABLET PO PRN (21:18)
[2018-01-09] MEDS ORDERED: NITROGLYCERIN SL 0.4 MG TABLET SL PRN (21:18)
[2018-01-09] MEDS ORDERED: ACETAMINOPHEN 325 MG TABLET PO PRN (21:18)
[2018-01-09] MEDS: SODIUM CHLORIDE 0.9% 1,000 ML IV SCH (21:41)
[2018-01-09] MEDS: methylPREDNISolone SOD SUC 40 MG/1 ML VIAL IV SCH (21:41)
[2018-01-09] MEDS: ENOXAPARIN 40 MG/0.4 ML SYRINGE SUBCUT SCH (21:41)
[2018-01-10] MEDS: MEROPENEM 1,000 MG in SYRINGE 1 EACH IV SCH ×2 (00:42→11:26)
[2018-01-10] MEDS: TICAGRELOR 90 MG TABLET PO SCH ×3 (00:53→22:03)
[2018-01-10] MEDS: BUDESONIDE/FORMOTEROL 160-4.5 INHALER 6 GM INH SCH ×3 (00:55→22:03)
[2018-01-10] MEDS: ALBUTEROL/IPRATROPIUM 3 ML NEB RESP TX SCH ×7 (01:40→23:30)
[2018-01-10 03:06] LABS: Apearance,Urine CLEAR (Clear); Bacteria,Urine Occasional /HPF (Few); Bilirubin,Urine Negative (Negative); Blood, Urine Negative (Negative); Glucose,Urine (UA) Negative (Negative); Ketones,Urine 5 mg/dL (Negative); Nitrite,Urine Negative (Negative); Protein,Urine Negative; RBC,Urine <1 /HPF (0-4); Urine Color Yellow (Yellow); Urine Specific Gravity 1.013 (1.001-1.035); Urine Urobilinogen < 2.0 EU/DL (0.2-1.0); WBC,Urine <1 /HPF (0-6)
[2018-01-10 06:21] LABS: Basophils % 0.2 % (0.0-0.8); Eosinophils % 0.2 % (0.00-10.9); Hematocrit 27.7 VOL% (42.0-52.0); Hemoglobin 8.4 GM/DL (14.0-18.0); Immature Granulocytes % 0.5 %; Immature Granulocytes Absolute 0.03 #; Lymphocytes # 0.5 10*3/uL (1.4-4.0); Lymphocytes % 8.4 % (21.2-54.2); Mean Corpuscular HGB Conc 30.3 GM/DL (32-36); Mean Corpuscular Hemoglobin 23 PG (27-34); Mean Corpuscular Volume 74.9 FL (87-102); Mean Platelet Volume 9.9 FL (9.6-12.0); Monocytes # 0.1 10*3/uL (0.11-0.8); Monocytes % 1.6 % (1.7-12.7); Neutrophils # 5.7 10*3/uL (1.4-7.4); Neutrophils % 89.1 % (38.7-73.9); Platelet Count 292 T/CUMM (130-400); Red Cell Distribution Width 19.9 % (9.3-17.3); White Blood Count 6.3 T/CUMM (4-12)
[2018-01-10 07:01] LABS: Barbiturates Screen,Urine Negative (Negative); Benzodiazepines Screen,Urine Negative (Negative); Cannabinoid Screen,Urine Negative (Negative); Opiate Screen,Urine Positive (Negative); Phencyclidine Screen,Urine Negative (Negative)
[2018-01-10 07:09] LABS: Alanine Aminotransferase 19 U/L (16-61); Alkaline Phosphatase 117 U/L (45-117); Aspartate Amino Transferase 19 U/L (0-37); Blood Urea Nitrogen 16 MG/DL (7-18); Calcium 8.1 MG/DL (8.5-10.1); Glucose 98 MG/DL (74-106); Osmolality,Calculated 270.1 MOS/KG (273-304); Sodium 135 MMOL/L (136-145); Total Protein 6.3 G/DL (6.4-8.3); Troponin I Only < 0.015 NG/ML (0.00-0.045)
[2018-01-10] MEDS: METOPROLOL TARTRATE 50 MG TABLET PO SCH (08:03)
[2018-01-10] MEDS: PANTOPRAZOLE 40 MG TABLET PO SCH (08:03)
[2018-01-10] MEDS: ASPIRIN EC 81 MG TABLET PO SCH (08:03)
[2018-01-10] MEDS: DEXAMETHASONE 4 MG TABLET PO SCH (08:03)
[2018-01-10] MEDS: methylPREDNISolone SOD SUC 40 MG/1 ML VIAL IV SCH ×3 (08:03→21:37)
[2018-01-10] MEDS: SODIUM CHLORIDE 0.9% 1,000 ML IV SCH (14:20)
[2018-01-10] MEDS: LORazepam 1 MG TABLET PO PRN ×2 (14:20→22:03)
[2018-01-10] MEDS: ENOXAPARIN 40 MG/0.4 ML SYRINGE SUBCUT SCH (21:36)
[2018-01-11] MEDS: MEROPENEM 1,000 MG in SYRINGE 1 EACH IV SCH ×2 (01:00→11:21)
[2018-01-11] MEDS: ALBUTEROL/IPRATROPIUM 3 ML NEB RESP TX SCH ×6 (03:10→23:34)
[2018-01-11] MEDS: SODIUM CHLORIDE 0.9% 1,000 ML IV SCH ×2 (06:30→22:31)
[2018-01-11] MEDS: TICAGRELOR 90 MG TABLET PO SCH ×2 (08:03→21:31)
[2018-01-11] MEDS: METOPROLOL TARTRATE 50 MG TABLET PO SCH (08:03)
[2018-01-11] MEDS: PANTOPRAZOLE 40 MG TABLET PO SCH (08:03)
[2018-01-11] MEDS: ASPIRIN EC 81 MG TABLET PO SCH (08:03)
[2018-01-11] MEDS: DEXAMETHASONE 4 MG TABLET PO SCH (08:03)
[2018-01-11] MEDS: methylPREDNISolone SOD SUC 40 MG/1 ML VIAL IV SCH ×3 (08:04→21:32)
[2018-01-11] MEDS: BUDESONIDE/FORMOTEROL 160-4.5 INHALER 6 GM INH SCH ×2 (08:06→21:34)
[2018-01-11] MEDS: LORazepam 1 MG TABLET PO PRN (14:33)
[2018-01-11] MEDS: NICOTINE 21 MG/24 HR PATCH TRANSDERM SCH (15:21)
[2018-01-11] MEDS ORDERED: ZINC OXIDE PASTE 113 GM TUBE TOP PRN (16:17)
[2018-01-11] MEDS: ENOXAPARIN 40 MG/0.4 ML SYRINGE SUBCUT SCH (21:32)
[2018-01-12] MEDS: MEROPENEM 1,000 MG in SYRINGE 1 EACH IV SCH ×2 (00:19→12:10)
[2018-01-12] MEDS: LORazepam 1 MG TABLET PO PRN ×2 (00:33→14:50)
[2018-01-12] MEDS: ALBUTEROL/IPRATROPIUM 3 ML NEB RESP TX SCH ×4 (03:12→14:09)
[2018-01-12] MEDS: PANTOPRAZOLE 40 MG TABLET PO SCH (09:08)
[2018-01-12] MEDS: TICAGRELOR 90 MG TABLET PO SCH (09:08)
[2018-01-12] MEDS: METOPROLOL TARTRATE 50 MG TABLET PO SCH (09:08)
[2018-01-12] MEDS: NICOTINE 21 MG/24 HR PATCH TRANSDERM SCH (09:09)
[2018-01-12] MEDS: DEXAMETHASONE 4 MG TABLET PO SCH (09:09)
[2018-01-12] MEDS: ASPIRIN EC 81 MG TABLET PO SCH (09:09)
[2018-01-12] MEDS: methylPREDNISolone SOD SUC 40 MG/1 ML VIAL IV SCH (09:10)
[2018-01-12] MEDS: BUDESONIDE/FORMOTEROL 160-4.5 INHALER 6 GM INH SCH (09:13)
[2018-01-12 12:18] VITALS: BP 133/79
[2018-01-12] MEDS ORDERED: DONEPEZIL 5 MG TABLET PO SCH (21:00)
== END 2018-01-12 15:59 | DRG 918 ==
LOC: EDBD → EDUNIT# → N.ED 15:45 → N.EDINP 18:51 → SUATTDRO 18:51 → N.5E 20:58
PROVIDERS: ADMIT Internal Medicine; ATTEND Internal Medicine